=== PATIENT | female | born 1960 | race Two or more races ===

== ENCOUNTER 2024-01-14 09:01 | Emergency (ER) | payer MEDICAID ==
[~2024-01-14] VITALS: Ht 152.4 cm; Wt 93.9 kg
[2024-01-14 10:05] VITALS: BP 148/63; PULSE 103; RESP 18; TEMP 98.2; O2SAT 100
[2024-01-14] MEDS: KETOROLAC TROMETH 60MG/2ML VIAL IM ONE (11:23)
[2024-01-14] MEDS ORDERED: MELO7.5T7 PO (11:28)
[2024-01-14] MEDS ORDERED: PRED20TA2 PO (11:28)
== END 2024-01-14 11:34 | disposition home or self-care (01) ==
LOC: ER 09:01
DX: M13.862 Other specified arthritis, left knee (principal); M13.861 Other specified arthritis, right knee
CPT/HCPCS: 73562; 96372; 99283; J1885